=== PATIENT | female | born 1965 | race Asian ===

== ENCOUNTER 2020-02-26 20:24 | Inpatient (IN) | payer MEDICAID ==
[~2020-02-26] VITALS: Ht 162.6 cm; Wt 54.0 kg
[2020-02-26] MEDS ORDERED: MORPHINE SULFATE 4 MG/ML CPJ (NOT FOR IM USE) IV STA (21:10)
[2020-02-26] MEDS ORDERED: ASPIRIN 81MG TABLET PO ONE (21:15)
[2020-02-26 21:42] LABS: BASOPHILS % 0.7 % (0.0-2.0); EOSINOPHILS % 3.2 % (0.0-5.0); HEMATOCRIT. 35.9 % (36.0-48.0); HEMOGLOBIN. 12.2 g/dL (12.0-16.0); LYMPHOCYTES % 40.4 % (20.0-50.0); MEAN CORPUSCULAR HEMOGLOBIN 30.8 pg (28.0-32.0); MEAN CORPUSCULAR VOLUME 90.7 fL (81.0-99.0); MONOCYTES % 8.7 % (2.0-8.0); PLATELET 282 x1000/uL (130-400); RED BLOOD CELL COUNT 3.96 mill/uL (4.2-5.4); RED CELL DISTRIBUTION WIDTH 12.5 % (11.6-14.6)
[2020-02-26 21:48] LABS: CHLORIDE 109 mEq/L (98-107)
[2020-02-27] VITALS (12 sets, daily range): BP systolic 98–156; BP diastolic 30–77
[2020-02-27 07:07] LABS: BASOPHILS % 0.7 % (0.0-2.0); HEMATOCRIT. 34.9 % (36.0-48.0); HEMOGLOBIN. 12.1 g/dL (12.0-16.0); LYMPHOCYTES % 35.1 % (20.0-50.0); MEAN CORPUSCULAR HEMOGLOBIN 31.4 pg (28.0-32.0); MEAN CORPUSCULAR VOLUME 90.3 fL (81.0-99.0); MEAN PLATELET VOLUME 8.2 fl (7.4-10.4); MONOCYTES % 10.4 % (2.0-8.0); NEUTROPHILS % 48.8 % (40.0-76.0); PLATELET 273 x1000/uL (130-400); RED BLOOD CELL COUNT 3.86 mill/uL (4.2-5.4); RED CELL DISTRIBUTION WIDTH 12.4 % (11.6-14.6)
[2020-02-27 07:11] LABS: CHLORIDE 111 mEq/L (98-107)
[2020-02-27 07:18] LABS: LDL CHOLESTEROL 89 mg/dL (5-100)
[2020-02-27 07:19] LABS: HDL CHOLESTEROL 59 mg/dL (40-59)
[2020-02-27] MEDS ORDERED: IODIXANOL 320MG/ML 100 ML BOTTLE IV ONE (08:59)
[2020-02-27] MEDS ORDERED: LIDOCAINE HCL 1% 20ML VIAL (Pyxis) INJ ONE (08:59)
[2020-02-27] MEDS ORDERED: GENTAMICIN/NS IRRIGATION 500 ML IR ONE (09:00)
[2020-02-27] MEDS ORDERED: GENTAMICIN SULF 40MG/ML 2ML VIAL ONE (09:04)
[2020-02-27] MEDS ORDERED: PROPOFOL 200MG/20ML VIAL IV ONE (10:13)
[2020-02-27] MEDS ORDERED: MIDAZOLAM HCL 2 MG/2 ML VIAL ONE (10:13)
[2020-02-27] MEDS ORDERED: PROPOFOL 10MG/ML 100ML 100 ML IV ONE (10:16)
[2020-02-27] MEDS ORDERED: SODIUM CHLORIDE 0.9% 1,000 ML IV ONE (12:18)
[2020-02-27] MEDS ORDERED: ONDANSETRON HCL 4MG/2ML INJ IV PRN (12:30)
[2020-02-27] MEDS ORDERED: HYDROMORPHONE HCL/PF 2MG/ML CPJ IV PRN ×2 (12:30→12:45)
[2020-02-27] MEDS ORDERED: MEPERIDINE HCL/PF 25MG/ML CPJ IV PRN ×2 (12:30)
[2020-02-27] MEDS ORDERED: MORPHINE SULFATE 2 MG/ML CPJ (NOT FOR IM USE) IV PRN (12:30)
[2020-02-27] MEDS ORDERED: HYDROMORPHONE HCL/PF 2MG/ML (OR) ONE (12:51)
[2020-02-27] MEDS: HYDROCODONE/ACETAMINOPHEN 5/325MG TABLET PO PRN (14:37)
[2020-02-27] MEDS: HYDROCODONE/APAP 7.5/325MG 1 TAB TABLET PO PRN ×2 (16:34→21:35)
[2020-02-28] VITALS (12 sets, daily range): BP systolic 107–143; BP diastolic 50–92
[2020-02-28] MEDS: HYDROCODONE/APAP 7.5/325MG 1 TAB TABLET PO PRN ×5 (01:39→18:41)
[2020-02-28] MEDS ORDERED: HYDROMORPHONE HCL/PF 2MG/ML CPJ IV PRN (16:30)
[2020-02-28 16:49] LABS: CHLORIDE 105 mEq/L (98-107)
[2020-02-28 16:51] LABS: BASOPHILS % 0.3 % (0.0-2.0); EOSINOPHILS % 2.1 % (0.0-5.0); HEMATOCRIT. 36.2 % (36.0-48.0); HEMOGLOBIN. 12.2 g/dL (12.0-16.0); MEAN CORPUSCULAR HEMOGLOBIN 30.7 pg (28.0-32.0); MEAN CORPUSCULAR VOLUME 91.1 fL (81.0-99.0); MEAN PLATELET VOLUME 8.1 fl (7.4-10.4); MONOCYTES % 7.7 % (2.0-8.0); NEUTROPHILS % 77.9 % (40.0-76.0); PLATELET 255 x1000/uL (130-400); RED BLOOD CELL COUNT 3.97 mill/uL (4.2-5.4); RED CELL DISTRIBUTION WIDTH 12.3 % (11.6-14.6)
[2020-02-28] MEDS: CEPHALEXIN 250MG CAPSULE PO SCH ×2 (18:41→23:31)
[2020-02-28] MEDS: HYDROCODONE/ACETAMINOPHEN 5/325MG TABLET PO PRN (23:41)
[2020-02-29] VITALS (12 sets, daily range): BP systolic 99–151; BP diastolic 50–89
[2020-02-29] MEDS: HYDROCODONE/ACETAMINOPHEN 5/325MG TABLET PO PRN ×2 (04:22→08:55)
[2020-02-29] MEDS: CEPHALEXIN 250MG CAPSULE PO SCH ×3 (08:53→18:10)
[2020-02-29] MEDS ORDERED: TRAMADOL 50MG TABLET PO PRN (12:45)
[2020-02-29] MEDS ORDERED: HYDROCODONE/ACETAMINOPHEN 5/325MG TABLET PO PRN (15:45)
[2020-03-03 14:07] LABS: ANA IFA Negative (.)
== END 2020-02-29 20:41 | disposition home or self-care (01) | DRG 171 ==
LOC: ER 20:24 → 5EST 21:25 → ENRESERV 22:24 → 5EST 02-27 04:54
PROVIDERS: ADMIT Internal Medicine; ATTEND Internal Medicine
PROC: 0JH606Z Insertion of Pacemaker, Dual Chamber into Chest Subcutaneous Tissue and Fascia, Open Approach (ICD-10-PCS; principal; 2020-02-27)
PROC: 02H63JZ Insertion of Pacemaker Lead into Right Atrium, Percutaneous Approach (ICD-10-PCS; 2020-02-27)
PROC: 02HK3JZ Insertion of Pacemaker Lead into Right Ventricle, Percutaneous Approach (ICD-10-PCS; 2020-02-27)
PROC: B51CYZZ Fluoroscopy of Left Lower Extremity Veins using Other Contrast (ICD-10-PCS; 2020-02-27)
DX: R00.1 Bradycardia, unspecified (principal); D86.9 Sarcoidosis, unspecified; I25.10 Atherosclerotic heart disease of native coronary artery without angina pectoris; I45.9 Conduction disorder, unspecified
CPT/HCPCS: 33208; 36415; 71045; 75820; 80048; 80053; 80061; 83735; 83880; 84484; 85025; 85651; 86038; 86256; 93005; 96365; 99291; C1785; C1893; C1898; J1170; J1580; J2250; J2270; J2704; J3490; Q9967

== ENCOUNTER 2020-05-18 12:37 | Inpatient (IN) | payer MEDICAID ==
[~2020-05-18] VITALS: Ht 162.6 cm; Wt 49.5 kg
[2020-05-18] VITALS (9 sets, daily range): BP systolic 115–128; BP diastolic 58–91
[2020-05-18] MEDS ORDERED: MORPHINE SULFATE 4 MG/ML CPJ (NOT FOR IM USE) IV STA (13:13)
[2020-05-18 13:25] LABS: CHLORIDE 105 mEq/L (98-107)
[2020-05-18] MEDS ORDERED: NITROGLYCERIN 0.4MG TABLET SL SL ONE (13:30)
[2020-05-18] MEDS ORDERED: ASPIRIN 325MG EC TABLET PO ONE (13:45)
[2020-05-18] MEDS ORDERED: HEPARIN 5000 UNITS/ML VIAL IV NR (14:00)
[2020-05-18 14:15] LABS: BASOPHILS % 0.8 % (0.0-2.0); EOSINOPHILS % 3.2 % (0.0-5.0); HEMATOCRIT. 34.3 % (36.0-48.0); HEMOGLOBIN. 11.7 g/dL (12.0-16.0); MEAN CORPUSCULAR HEMOGLOBIN 31.3 pg (28.0-32.0); MEAN CORPUSCULAR VOLUME 91.8 fL (81.0-99.0); MEAN PLATELET VOLUME 8.1 fl (7.4-10.4); MONOCYTES % 7.6 % (2.0-8.0); NEUTROPHILS % 61.4 % (40.0-76.0); PLATELET 269 x1000/uL (130-400); RED BLOOD CELL COUNT 3.73 mill/uL (4.2-5.4); RED CELL DISTRIBUTION WIDTH 12.6 % (11.6-14.6)
[2020-05-18] MEDS ORDERED: MIDAZOLAM HCL 2 MG/2 ML VIAL ONE (14:15)
[2020-05-18] MEDS ORDERED: FENTANYL CITRATE/PF 50MCG/ML 2ML VIAL ONE (14:16)
[2020-05-18] MEDS ORDERED: LIDOCAINE HCL 1% 20ML VIAL (Pyxis) INJ ONE (14:16)
[2020-05-18] MEDS ORDERED: NITROGLYCERIN 50MG PREMIX 0 ML IV ONE (14:17)
[2020-05-18] MEDS ORDERED: IODIXANOL 320MG/ML 100 ML BOTTLE IV ONE (14:18)
[2020-05-18] MEDS ORDERED: ASPIRIN/SOD BICARB/CITRIC ACID 324MG TAB EFF ONE (14:37)
[2020-05-18] MEDS ORDERED: HEPARIN SODIUM 1,000 UNIT/1ML VIAL IV ONE (14:51)
[2020-05-18] MEDS ORDERED: ATROPINE SULFATE 1MG/10ML SYR IV PRN (15:15)
[2020-05-18] MEDS ORDERED: MORPHINE SULFATE 2 MG/ML CPJ (NOT FOR IM USE) IV PRN (15:15)
[2020-05-18] MEDS ORDERED: ONDANSETRON HCL 4MG/2ML INJ IV PRN (15:15)
[2020-05-18] MEDS ORDERED: ACETAMINOPHEN 325MG TABLET PO PRN (15:15)
[2020-05-18] MEDS ORDERED: ZOLP10TA2 MT (15:52)
[2020-05-18] MEDS ORDERED: DICL50TA9 MT (15:52)
[2020-05-18] MEDS ORDERED: GABA-531 MT (15:52)
[2020-05-18] MEDS ORDERED: DIPH-907 MT (15:52)
[2020-05-18] MEDS ORDERED: MOBI7 MT (15:52)
[2020-05-18] MEDS ORDERED: BACL-141 MT (15:52)
[2020-05-18] MEDS ORDERED: SODIUM CHLORIDE 0.45% 1,000 ML IV ONE (16:00)
[2020-05-18] MEDS ORDERED: ZOLPIDEM TARTRATE 5MG TABLET PO PRN (20:00)
[2020-05-18 20:01] LABS: PARTIAL THROMBOPLASTIN TIME 27.7 sec (23.4-31.0)
[2020-05-18] MEDS: BACLOFEN 10MG TABLET PO SCH (20:51)
[2020-05-19] VITALS (8 sets, daily range): BP systolic 103–122; BP diastolic 48–68
[2020-05-19] MEDS: BACLOFEN 10MG TABLET PO SCH ×2 (06:00→14:00)
[2020-05-19 07:54] LABS: BASOPHILS % 0.6 % (0.0-2.0); EOSINOPHILS % 3.4 % (0.0-5.0); HEMATOCRIT. 34.6 % (36.0-48.0); HEMOGLOBIN. 11.9 g/dL (12.0-16.0); LYMPHOCYTES % 23.7 % (20.0-50.0); MEAN CORPUSCULAR HEMOGLOBIN 31.4 pg (28.0-32.0); MEAN CORPUSCULAR VOLUME 91.7 fL (81.0-99.0); MEAN PLATELET VOLUME 7.9 fl (7.4-10.4); NEUTROPHILS % 64.3 % (40.0-76.0); PLATELET 265 x1000/uL (130-400); RED BLOOD CELL COUNT 3.78 mill/uL (4.2-5.4)
[2020-05-19 08:10] LABS: CHLORIDE 108 mEq/L (98-107)
[2020-05-19] MEDS: NON FORMULARY PATIENT HOME MED PO SCH ×2 (09:00)
[2020-05-19] MEDS: GABAPENTIN 300MG CAPSULE PO SCH ×2 (09:00→15:08)
[2020-05-19] MEDS ORDERED: DICLOFENAC SODIUM 50 MG DR TABLET PO SCH (21:00)
[2020-05-19] MEDS ORDERED: CARVEDILOL 3.125 MG TABLET PO SCH (21:00)
== END 2020-05-19 18:25 | disposition home or self-care (01) | DRG 190 ==
LOC: ER 12:37 → EDBEDREQSVC 14:26 → EDBEDREQ 14:26 → EDBEDREQTM 14:26 → 3WST 17:22
PROVIDERS: ADMIT Internal Medicine; ATTEND Internal Medicine
PROC: 4A023N7 Measurement of Cardiac Sampling and Pressure, Left Heart, Percutaneous Approach (ICD-10-PCS; principal; 2020-05-18)
PROC: B211YZZ Fluoroscopy of Multiple Coronary Arteries using Other Contrast (ICD-10-PCS; 2020-05-18)
PROC: B215YZZ Fluoroscopy of Left Heart using Other Contrast (ICD-10-PCS; 2020-05-18)
DX: I21.09 ST elevation (STEMI) myocardial infarction involving other coronary artery of anterior wall (principal); I42.8 Other cardiomyopathies; I50.9 Heart failure, unspecified; I44.7 Left bundle-branch block, unspecified; D64.9 Anemia, unspecified; I25.10 Atherosclerotic heart disease of native coronary artery without angina pectoris; Z79.899 Other long term (current) drug therapy; I25.2 Old myocardial infarction; Z95.0 Presence of cardiac pacemaker
CPT/HCPCS: 36415; 71045; 76700; 80048; 80053; 83735; 83880; 84443; 84484; 85025; 86850; 86900; 93005; 93306; 93458; 99285; C1760; C1769; C1887; C1893; J1644; J2250; J2270; J3010; J3490; Q9967

== ENCOUNTER 2020-05-20 10:50 | Inpatient (IN) | payer MEDICAID ==
[~2020-05-20] VITALS: Ht 162.6 cm; Wt 54.4 kg
[~2020-05-20 10:50] MED LIST: BACL-141 MT; DICL50TA9 MT; DIPH-907 MT; GABA-531 MT; MOBI7 MT; ZOLP10TA2 MT
[2020-05-20] MEDS ORDERED: MORPHINE SULFATE 4 MG/ML CPJ (NOT FOR IM USE) IV ONE (11:15)
[2020-05-20] MEDS ORDERED: NITROGLYCERIN 0.4MG TABLET SL SL ONE (11:15)
[2020-05-20] MEDS ORDERED: SODIUM CHLORIDE 0.9% 1,000 ML IV ONE (11:30)
[2020-05-20 11:43] LABS: BASOPHILS % 0.6 % (0.0-2.0); EOSINOPHILS % 4.3 % (0.0-5.0); HEMATOCRIT. 37.1 % (36.0-48.0); LYMPHOCYTES % 25.7 % (20.0-50.0); MEAN CORPUSCULAR HEMOGLOBIN 32.1 pg (28.0-32.0); MEAN CORPUSCULAR VOLUME 91.8 fL (81.0-99.0); MEAN PLATELET VOLUME 7.9 fl (7.4-10.4); MONOCYTES % 8.9 % (2.0-8.0); NEUTROPHILS % 60.5 % (40.0-76.0); PLATELET 263 x1000/uL (130-400); RED BLOOD CELL COUNT 4.04 mill/uL (4.2-5.4); RED CELL DISTRIBUTION WIDTH 12.6 % (11.6-14.6)
[2020-05-20 11:50] LABS: CHLORIDE 105 mEq/L (98-107)
[2020-05-20] MEDS ORDERED: SODIUM CHLORIDE 0.9% 500 ML IV ONE (13:30)
[2020-05-20] MEDS ORDERED: IOHEXOL-350 100 ML BOTTLE ONE (14:02)
[2020-05-20 17:45] VITALS: BP 119/52
[2020-05-20] MEDS ORDERED: ZOLPIDEM TARTRATE 5MG TABLET PO PRN (19:00)
[2020-05-20] MEDS ORDERED: ASPIRIN 325MG EC TABLET PO SCH (19:00)
[2020-05-20] MEDS ORDERED: MORPHINE SULFATE 2 MG/ML CPJ (NOT FOR IM USE) IV PRN (19:00)
[2020-05-20] MEDS ORDERED: NITROGLYCERIN 0.4MG TABLET SL SL PRN (19:00)
[2020-05-20 19:17] VITALS: BP 119/52
[2020-05-20] MEDS: METOPROLOL TARTRATE 25MG TABLET PO SCH (20:48)
[2020-05-20] MEDS ORDERED: ATORVASTATIN CALCIUM 20MG TABLET PO SCH (21:00)
[2020-05-20 21:22] VITALS: BP 100/50
[2020-05-21] VITALS: BP 102/53
[2020-05-21 04:00] VITALS: BP 101/48
[2020-05-21 07:41] LABS: BASOPHILS % 0.7 % (0.0-2.0); EOSINOPHILS % 7.3 % (0.0-5.0); HEMATOCRIT. 35.3 % (36.0-48.0); HEMOGLOBIN. 12.2 g/dL (12.0-16.0); LYMPHOCYTES % 34.1 % (20.0-50.0); MEAN CORPUSCULAR HEMOGLOBIN 31.4 pg (28.0-32.0); MEAN CORPUSCULAR VOLUME 91.3 fL (81.0-99.0); NEUTROPHILS % 49.9 % (40.0-76.0); PLATELET 273 x1000/uL (130-400); RED BLOOD CELL COUNT 3.86 mill/uL (4.2-5.4); RED CELL DISTRIBUTION WIDTH 12.4 % (11.6-14.6)
[2020-05-21 07:46] LABS: CHLORIDE 111 mEq/L (98-107)
[2020-05-21 07:57] LABS: LDL CHOLESTEROL 104 mg/dL (5-100)
[2020-05-21 07:58] LABS: HDL CHOLESTEROL 58 mg/dL (40-59)
[2020-05-21 08:00] VITALS: BP 104/39
[2020-05-21] MEDS: METOPROLOL TARTRATE 25MG TABLET PO SCH (09:00)
[2020-05-21] MEDS ORDERED: MELOXICAM 7.5MG TABLET PO SCH (09:00)
[2020-05-21] MEDS ORDERED: GABAPENTIN 300MG CAPSULE PO SCH (09:00)
[2020-05-21] MEDS ORDERED: ISOSORBIDE MONONITRATE 30MG TABLET SR 24HR PO SCH (09:00)
[2020-05-21 09:34] VITALS: BP 104/39
== END 2020-05-21 11:00 | disposition home or self-care (01) | DRG 198 ==
LOC: ER 10:50 → 6WST 15:41 → ENRESERV 15:59
PROVIDERS: ADMIT Internal Medicine; ATTEND Internal Medicine
DX: I25.10 Atherosclerotic heart disease of native coronary artery without angina pectoris (principal); I42.8 Other cardiomyopathies; I49.5 Sick sinus syndrome; M94.0 Chondrocostal junction syndrome [Tietze]; I50.22 Chronic systolic (congestive) heart failure; R07.89 Other chest pain; J44.9 Chronic obstructive pulmonary disease, unspecified; Z95.0 Presence of cardiac pacemaker; Z79.899 Other long term (current) drug therapy
CPT/HCPCS: 36415; 71045; 71275; 80053; 80061; 83880; 84443; 84484; 85025; 96374; 99285; J2270; J7030; J7040; Q9967

== ENCOUNTER 2021-12-07 12:36 | Emergency (ER) | payer MEDICAID ==
[~2021-12-07] VITALS: Ht 162.6 cm; Wt 48.0 kg
[~2021-12-07 12:36] MED LIST changes: -GABA-531 MT; +GABA-532 MT
[2021-12-07] MEDS ORDERED: CARV3.1242 PO (12:50)
[2021-12-07 13:26] LABS: EOSINOPHILS % 2.4 % (0.0-5.0); HEMATOCRIT. 39.9 % (36.0-48.0); HEMOGLOBIN. 13.1 g/dL (12.0-16.0); LYMPHOCYTES % 32.5 % (20.0-50.0); MEAN CORPUSCULAR HEMOGLOBIN 29.9 pg (28.0-32.0); MEAN CORPUSCULAR VOLUME 91.2 fL (81.0-99.0); MEAN PLATELET VOLUME 8.9 fl (7.4-10.4); MONOCYTES % 6.9 % (2.0-8.0); NEUTROPHILS % 57.2 % (40.0-76.0); PLATELET 319 x1000/uL (130-400); RED BLOOD CELL COUNT 4.38 mill/uL (4.2-5.4)
[2021-12-07 13:33] LABS: CHLORIDE 105 mEq/L (98-107)
[2021-12-07 18:51] VITALS: BP 108/65
== END 2021-12-07 18:51 | disposition home or self-care (01) ==
LOC: ER 12:36
DX: R07.89 Other chest pain (principal); I51.9 Heart disease, unspecified; I49.9 Cardiac arrhythmia, unspecified; Z95.0 Presence of cardiac pacemaker
CPT/HCPCS: 36415; 71045; 80053; 83880; 84484; 85025; 93005; 99285